=== PATIENT | male | born 1990 | race Caucasian/White ===

== ENCOUNTER 2018-03-23 06:32 | Emergency (ER) | payer MEDICAID ==
[~2018-03-23] VITALS: Ht 177.8 cm; Wt 73.0 kg
[2018-03-23 06:36] VITALS: BP 116/78
== END 2018-03-23 06:56 | disposition left against medical advice (07) ==
LOC: ER 06:32
DX: R68.89 Other general symptoms and signs (principal); Z53.21 Procedure and treatment not carried out due to patient leaving prior to being seen by health care provider

== ENCOUNTER 2019-08-10 11:31 | Emergency (ER) | payer MEDICAID ==
[~2019-08-10] VITALS: Ht 172.7 cm; Wt 73.0 kg
[2019-08-10] MEDS ORDERED: SODIUM CHLORIDE 0.9% 1,000 ML IV ONE (12:01)
[2019-08-10] MEDS ORDERED: MORPHINE SULFATE 4 MG/ML CPJ (NOT FOR IM USE) IV STA (12:01)
[2019-08-10] MEDS ORDERED: ONDANSETRON HCL 4MG/2ML INJ IV STA (12:01)
[2019-08-10] MEDS ORDERED: TETANUS, DIPHTHERIA, PERTUSSIS VAC/PF 0.5ML (>7YR OLD) IM ONE (12:15)
[2019-08-10] MEDS ORDERED: LIDOCAINE 1%/EPI 1:100,000 10 ML VIAL IJ ONE (12:15)
[2019-08-10 12:27] LABS: BASOPHILS % 0.5 % (0.0-2.0); EOSINOPHILS % 0.9 % (0.0-5.0); HEMATOCRIT. 41.8 % (42.0-52.0); HEMOGLOBIN. 14.2 g/dL (14.0-18.0); LYMPHOCYTES % 20.7 % (20.0-50.0); MEAN CORPUSCULAR HEMOGLOBIN 28.1 pg (28.0-32.0); MEAN CORPUSCULAR VOLUME 82.9 fL (80.0-94.0); MEAN PLATELET VOLUME 8.7 fl (7.4-10.4); MONOCYTES % 8.1 % (2.0-8.0); NEUTROPHILS % 69.8 % (40.0-76.0); PLATELET 231 x1000/uL (130-400); RED BLOOD CELL COUNT 5.04 mill/uL (4.7-6.1); RED CELL DISTRIBUTION WIDTH 15.8 % (11.6-14.6)
[2019-08-10 12:28] LABS: INR 0.9; PARTIAL THROMBOPLASTIN TIME 27.1 sec (23.4-31.0); PROTHROMBIN TIME 9.9 sec (9.6-11.0)
[2019-08-10 12:32] LABS: CHLORIDE 104 mEq/L (98-107)
[2019-08-10 12:40] LABS: CREATINE KINASE 879 IU/L (39-308)
[2019-08-10] MEDS ORDERED: CEFAZOLIN 1000MG PREMIX 50 ML IV ONE (13:00)
[2019-08-10] MEDS ORDERED: LIDOCAINE HCL/EPINEPHRINE 1%-EPI 1:100,000 20 ML VIAL INFIL ONE (14:21)
[2019-08-10] MEDS ORDERED: IOHEXOL-300 100 ML BOTTLE ONE (15:36)
[2019-08-10 16:29] VITALS: BP 116/77
== END 2019-08-10 16:29 | disposition home or self-care (01) ==
LOC: ER 11:31
DX: S01.81XA Laceration without foreign body of other part of head, initial encounter (principal); S01.111A Laceration without foreign body of right eyelid and periocular area, initial encounter; S20.219A Contusion of unspecified front wall of thorax, initial encounter; S30.1XXA Contusion of abdominal wall, initial encounter; S80.12XA Contusion of left lower leg, initial encounter; W22.11XA Striking against or struck by driver side automobile airbag, initial encounter; V49.49XA Driver injured in collision with other motor vehicles in traffic accident, initial encounter; Y93.89 Activity, other specified; Y92.488 Other paved roadways as the place of occurrence of the external cause
CPT/HCPCS: 12004; 36415; 70450; 70486; 71045; 71260; 72125; 73590; 73630; 74177; 80053; 82550; 82553; 84484; 85025; 85610; 85730; 90471; 90715; 93005; 96365; 96375; 99285; J0690; J2270; J2405; J3490; J7030; Q9967